=== PATIENT | female | born 1960 | race Caucasian/White ===

== ENCOUNTER 2016-11-13 10:33 | Emergency (ER) | payer BC ==
[2016-11-13 11:14] VITALS: BP 145/75
--- NOTE | 2016-11-13 11:23 | UC ---
Complaint Female HPI - HPI Summary HPI Summary: Bladder fullness, urinary frequency, and dysuria starting 2 days ago. denies fever, vomiting, or back pain. - History Of Current Complaint Chief Complaint: UCGU Stated Complaint: URINARY COMPLAINT Time Seen by Provider: 11/13/16 10:59 Hx Obtained From: Patient ?: No Onset/Duration: Gradual Onset, Lasting Days Timing: Constant Severity Initially: Mild Severity Currently: Moderate Character: Dull, Burning, Cramping Aggravating Factor(s): Urination Alleviating Factor(s): Nothing Associated Signs And Symptoms: Negative: Vaginal Bleeding/Discharge, Vaginal Discharge - Allergies/Home Medications Allergies/Adverse Reactions: Allergies Allergy/AdvReac Type Severity Reaction Status Date / Time No Known Allergies Allergy Verified 11/13/16 11:00 Home Medications: Home Medications Bisoprolol & Hydrochlorothiazi [Ziac 2.5-6.25 mg-] 1 tab PO DAILY 11/13/16 [ History Confirmed 11/13/16] Levothyroxine TAB* [Synthroid TAB*] 100 mcg PO DAILY 11/13/16 [History Confirmed 11/13/16] PMH/Surg Hx/FS Hx/Imm Hx Endocrine History Of: Reports: Thyroid Disease Denies: Diabetes Cardiovascular History Of: Reports: Hypertension Denies: Cardiac Disorders Respiratory History Of: Reports: COPD, Pneumonia Denies: Asthma - Surgical History Surgical History: Yes Surgery Procedure, Year, and Place: appy - Family History Known Family History: Positive: Hypertension - Social History Lives: With Family Alcohol Use: Rare Substance Use Type: None Smoking Status (MU): Current Every Day Smoker Type: Cigarettes Amount Used/How Often: 1/2 pk daily Length of Time of Smoking/Using Tobacco: 30 YRS When Did the Patient Quit Smoking/Using Tobacco: 1 1/2 years - Immunization History Most Recent Influenza Vaccination: [id number] Review of Systems Constitutional: Negative Skin: Negative Eyes: Negative ENT: Negative Respiratory: Negative Cardiovascular: Negative Gastrointestinal: Negative Genitourinary: Dysuria, Frequency, Urgency Motor: Negative Neurovascular: Negative Musculoskeletal: Negative Neurological: Negative Psychological: Negative All Other Systems Reviewed And Are Negative: Yes Physical Exam Triage Information Reviewed: Yes Appearance: Well-Appearing, No Pain Distress, Well-Nourished Vital Signs: Initial Vital Signs Temp 97.1 F 11/13/16 10:51 Pulse 71 11/13/16 10:51 Resp 16 01/06/17 10:51 BP 145/75 11/13/16 10:51 Pulse Ox 99 11/13/16 10:51 Vital Signs Reviewed: Yes Eye Exam: Normal Eyes: Positive: Conjunctiva Clear ENT Exam: Normal ENT: Positive: Normal ENT inspection, Hearing grossly normal, Pharynx normal, TMs normal Dental Exam: Other - dentures Neck exam: Normal Neck: Positive: Supple, Nontender, No Lymphadenopathy Respiratory Exam: Normal Respiratory: Positive: Chest non-tender, Lungs clear, Normal breath sounds, No respiratory distress, No accessory muscle use Cardiovascular Exam: Normal Cardiovascular: Positive: RRR, No Murmur Abdomen Description: Positive: Nontender, Soft. Negative: CVA Tenderness (R), CVA Tenderness (L) Musculoskeletal Exam: Normal Neurological Exam: Normal Psychological Exam: Normal Skin Exam: Normal Complaint Female Dx - Differential Dx/Diagnosis Provider Diagnoses: UTI Discharge - Discharge Plan Condition: Stable Disposition: HOME Prescriptions: Nitrofurantoin Monohyd Macro [Macrobid] 100 mg PO BID #10 cap Phenazopyridine HCl [Pyridium] 200 mg PO TID PRN #3 tab PRN Reason: Pain Patient Education Materials: Urinary Tract Infection in Women (ED) Referrals: Angelina Solo MD [Primary Care Provider] - If Needed
== END 2016-11-13 11:22 | disposition home or self-care (01) ==
LOC: UCCORT 10:33
DX: N39.0 Urinary tract infection, site not specified (principal); E07.9 Disorder of thyroid, unspecified; F17.210 Nicotine dependence, cigarettes, uncomplicated
CPT/HCPCS: 87077; 87086; 87186; 99212; G0463

== ENCOUNTER 2016-12-25 09:13 | Emergency (ER) | payer BC ==
[2016-12-25 10:55] VITALS: BP 115/70
--- NOTE | 2016-12-25 11:14 | UC ---
Respiratory Complaint HPI - HPI Summary HPI Summary: cough, fever was 5 days ago for 2 days, fever now gone. cough no better. productive of yellow sputum. Has had the flu shot and pneumonia shots. Achey. - History of Current Complaint Chief Complaint: UCRespiratory Stated Complaint: UPPER RESPIRATORY Time Seen by Provider: 12/25/16 11:09 Hx Obtained From: Patient Hx Last Menstrual Period: age 50 andreina Onset/Duration: Gradual Onset, Lasting Days, Still Present Timing: Constant Severity Initially: Moderate Severity Currently: Moderate Pain Intensity: 4 Pain Scale Used: 0-10 Numeric Character: Sputum Description: - yellow Aggravating Factors: Nothing Alleviating Factors: Nothing Associated Signs And Symptoms: Positive: Fever - resolved, Wheezing - occasionally, URI, Nasal Congestion - Risk Factors Pulmonary Embolism Risk Factors: Negative Cardiac Risk Factors: Negative Pseudomonas Risk Factors: Negative Tuberculosis Risk Factors: Negative - Allergies/Home Medications Allergies/Adverse Reactions: Allergies Allergy/AdvReac Type Severity Reaction Status Date / Time No Known Allergies Allergy Verified 12/25/16 10:55 Home Medications: Home Medications Folic Acid TAB* [Folvite TAB*] 1 mg PO DAILY 12/25/16 [History Confirmed ] PMH/Surg Hx/FS Hx/Imm Hx Endocrine History Of: Reports: Thyroid Disease Denies: Diabetes Cardiovascular History Of: Reports: Hypertension Denies: Cardiac Disorders Respiratory History Of: Reports: COPD, Pneumonia Denies: Asthma - Surgical History Surgical History: Yes Surgery Procedure, Year, and Place: appy - Family History Known Family History: Positive: Other - ARREDONDO in mother, colon cancer in father, both - Social History Occupation: Employed Full-time Alcohol Use: Rare Substance Use Type: None Smoking Status (MU): Former Smoker Type: Cigarettes Amount Used/How Often: 1/2 pk daily Length of Time of Smoking/Using Tobacco: 30 YRS When Did the Patient Quit Smoking/Using Tobacco: 1 1/2 years - Immunization History Most Recent Influenza Vaccination: [id number] Review of Systems Constitutional: Fever Skin: Negative Eyes: Negative ENT: Negative Respiratory: Cough Cardiovascular: Negative Gastrointestinal: Negative Genitourinary: Negative Motor: Negative Neurovascular: Negative Musculoskeletal: Negative Neurological: Negative Psychological: Negative All Other Systems Reviewed And Are Negative: Yes Physical Exam Triage Information Reviewed: Yes Appearance: Well-Nourished, Ill-Appearing, Pain Distress Vital Signs: Initial Vital Signs Temp 98 F 12/25/16 10:48 Pulse 72 12/25/16 10:48 Resp 18 12/25/16 10:48 BP 115/70 12/25/16 10:48 Pulse Ox 97 12/25/16 10:48 Vital Signs Reviewed: Yes Eyes: Positive: Conjunctiva Clear ENT: Positive: Hearing grossly normal, Pharyngeal erythema, TMs normal Neck: Positive: Supple, Nontender, No Lymphadenopathy Respiratory: Positive: No respiratory distress, No accessory muscle use, Wheezing - throughout exp Cardiovascular: Positive: RRR, No Murmur, Pulses Normal, Brisk Capillary Refill Musculoskeletal: Positive: Strength Intact, ROM Intact Neurological: Positive: Alert, Muscle Tone Normal Psychological Exam: Normal Skin Exam: Normal UC Diagnostic Evaluation - Laboratory O2 Sat by Pulse Oximetry: 97 Respiratory Course/Dx - Differential Dx/Diagnosis Differential Diagnosis/HQI/PQRI: Bronchitis, Lower Resp Infection, Sinusitis Provider Diagnoses: asthmatic bronchitis Discharge - Discharge Plan Condition: Stable Disposition: HOME Prescriptions: Albuterol HFA INHALER* [Ventolin HFA Inhaler*] 2 puff INH Q6H PRN #1 mdi PRN Reason: Cough DOXYcycline CAP(*) [DOXYcycline 100MG CAP(*)] 100 mg PO BID #20 cap guaiFENesin/CODIEN 100MG-10MG* [Robitussin AC 100Mg-10Mg*] 5 ml PO Q4H PRN #50 ml MDD 5ml PRN Reason: Cough predniSONE TAB* [Deltasone TAB*] 40 mg PO DAILY #10 tab Patient Education Materials: Acute Bronchitis (ED), Bronchospasm (ED) Referrals: Angelina Solo MD [Primary Care Provider] -
== END 2016-12-25 11:34 | disposition home or self-care (01) ==
LOC: UCCORT 09:13
DX: J44.9 Chronic obstructive pulmonary disease, unspecified (principal); J20.9 Acute bronchitis, unspecified; J45.998 Other asthma; R50.9 Fever, unspecified; I10 Essential (primary) hypertension; E07.9 Disorder of thyroid, unspecified; Z87.01 Personal history of pneumonia (recurrent); Z87.891 Personal history of nicotine dependence
CPT/HCPCS: 99212; G0463

== ENCOUNTER 2017-08-21 11:03 | Emergency (ER) | payer BC ==
[2017-08-21 11:51] VITALS: BP 143/63
--- NOTE | 2017-08-21 12:33 | UC ---
Respiratory Complaint HPI - HPI Summary HPI Summary: Increase cough and sinus pressure over the past week, concentrated over the left eye. - History of Current Complaint Chief Complaint: UCRespiratory Stated Complaint: RESPITORY Time Seen by Provider: 08/21/17 12:23 Hx Obtained From: Patient Hx Last Menstrual Period: age 50 andreina ?: No Onset/Duration: Sudden Onset, Lasting Days Timing: Constant Severity Initially: Mild Severity Currently: Moderate Associated Signs And Symptoms: Positive: URI, Nasal Congestion, Sinus Discomfort - Allergies/Home Medications Allergies/Adverse Reactions: Allergies Allergy/AdvReac Type Severity Reaction Status Date / Time No Known Allergies Allergy Verified 08/21/17 11:46 PMH/Surg Hx/FS Hx/Imm Hx Previously Healthy: Yes - Surgical History Surgical History: Yes Surgery Procedure, Year, and Place: appy - Family History Known Family History: Positive: Hypertension, Other - ARREDONDO in mother, colon cancer in father, both - Social History Occupation: Employed Full-time Alcohol Use: Rare Substance Use Type: None Smoking Status (MU): Former Smoker Type: Cigarettes Amount Used/How Often: 1/2 pk daily Length of Time of Smoking/Using Tobacco: 30 YRS When Did the Patient Quit Smoking/Using Tobacco: 1 1/2 years - Immunization History Most Recent Influenza Vaccination: not yet 2017 Review of Systems Constitutional: Negative Skin: Negative Eyes: Negative ENT: Ear Ache, Nasal Discharge, Sinus Congestion, Sinus Pain/Tenderness Respiratory: Shortness Of Breath, Cough Cardiovascular: Negative Gastrointestinal: Negative Genitourinary: Negative Motor: Negative Neurovascular: Negative Musculoskeletal: Negative Neurological: Headache Psychological: Negative Is Patient Immunocompromised?: No All Other Systems Reviewed And Are Negative: Yes Physical Exam Triage Information Reviewed: Yes Appearance: Well-Appearing, Well-Nourished, Pain Distress Vital Signs: Initial Vital Signs Temp 97.7 F 08/21/17 11:48 Pulse 78 08/21/17 11:48 Resp 18 08/21/17 11:48 BP 143/63 08/21/17 11:48 Pulse Ox 97 08/21/17 11:48 Vital Signs Reviewed: Yes Eye Exam: Normal ENT: Positive: Pharyngeal erythema - with posterior exudate, Nasal drainage, TM bulging Dental Exam: Normal Neck exam: Normal Neck: Positive: Supple, Nontender, No Lymphadenopathy Respiratory Exam: Normal Respiratory: Positive: Chest non-tender, Lungs clear, Normal breath sounds Cardiovascular Exam: Normal Cardiovascular: Positive: RRR, No Murmur, Pulses Normal Abdominal Exam: Normal Abdomen Description: Positive: Nontender, No Organomegaly, Soft Bowel Sounds: Positive: Present Musculoskeletal Exam: Normal Neurological Exam: Normal Neurological: Positive: Alert, Muscle Tone Normal Psychological Exam: Normal Skin Exam: Normal UC Diagnostic Evaluation - Laboratory O2 Sat by Pulse Oximetry: 97 Respiratory Course/Dx - Course Course Of Treatment: hx obtained, exam performed, meds reviewed, treated for sinusitis - Differential Dx/Diagnosis Differential Diagnosis/HQI/PQRI: Bronchitis, Laryngitis, Lower Resp Infection, Sinusitis Provider Diagnoses: sinusitis Discharge - Discharge Plan Condition: Stable Disposition: HOME Prescriptions: DOXYcycline CAP(*) [DOXYcycline 100MG CAP(*)] 100 mg PO BID #14 cap predniSONE TAB* [Deltasone TAB*] 40 mg PO DAILY #10 tab Patient Education Materials: Sinusitis (ED) Referrals: Angelina Solo MD [Primary Care Provider] - Additional Instructions: 1. take the medication as prescribed. 2. Increase fluid intake and get plenty of rest. 3. Follow up with any increase in symtpoms
== END 2017-08-21 12:40 | disposition home or self-care (01) ==
LOC: UCCORT 11:03
DX: J32.9 Chronic sinusitis, unspecified (principal); Z87.891 Personal history of nicotine dependence
CPT/HCPCS: 99212; G0463

== ENCOUNTER 2017-10-18 15:27 | Emergency (ER) | payer BC ==
[2017-10-18 15:44] VITALS: BP 141/70
[2017-10-18] MEDS ORDERED: Acetaminophen TAB* 325 MG PO ONE (16:08)
--- NOTE | 2017-10-18 16:21 | UC ---
Respiratory Complaint HPI - HPI Summary HPI Summary: Pt presents to with left sided rib pain. Pt states a few nights ago was lifting her 34 pound 1yo grandchild into car seat in middle of back row. Pt rubbed and ribs/side along the seat in front causing bruising and abrasion. Pt with persistent discomfort since. Pt states has been taking NSAID with mild relief. Pt has used heat with improvement. No blood in urine. No SOB - pain with deep breath. no cough. No abd pain No N/V/D. Last Naproxyn at 9am. Tdap 7 years. No anticoagulation Pt denies direct trauma, maltreatment Pt's medications reviewed this visit - History of Current Complaint Chief Complaint: UCChestPain Stated Complaint: LEFT SIDE RIB PAIN Time Seen by Provider: 10/18/17 15:53 Hx Obtained From: Patient Hx Last Menstrual Period: age 50 andreina Onset/Duration: Gradual Onset Timing: Constant Severity Initially: Moderate Severity Currently: Moderate Pain Intensity: 5 Character: Cough: Nonproductive Associated Signs And Symptoms: Positive: Negative. Negative: Fever - Allergies/Home Medications Allergies/Adverse Reactions: Allergies Allergy/AdvReac Type Severity Reaction Status Date / Time No Known Allergies Allergy Verified 10/18/17 15:40 PMH/Surg Hx/FS Hx/Imm Hx Previously Healthy: Yes - Surgical History Surgical History: Yes Surgery Procedure, Year, and Place: Tubal Ligation, Appendectomy - Family History Known Family History: Positive: Hypertension, Other - ARREDONDO in mother, colon cancer in father, both - Social History Occupation: Employed Part-time, Retired Lives: With Family Alcohol Use: Rare Substance Use Type: None Smoking Status (MU): Former Smoker Type: Cigarettes Amount Used/How Often: 1/2 pk daily Length of Time of Smoking/Using Tobacco: 1/2 PPD for 25-30 Years When Did the Patient Quit Smoking/Using Tobacco: 2011 - Immunization History Most Recent Influenza Vaccination: Not the 2016/2017 Season Review of Systems Constitutional: Negative Skin: Bruising, Other Is Patient Immunocompromised?: No All Other Systems Reviewed And Are Negative: Yes Physical Exam Triage Information Reviewed: Yes Appearance: Well-Appearing, Well-Nourished, Pain Distress Vital Signs: Initial Vital Signs Temp 98.5 F 10/18/17 15:37 Pulse 80 10/18/17 15:37 Resp 16 10/18/17 15:37 BP 141/70 10/18/17 15:37 Pulse Ox 100 10/18/17 15:37 Vital Signs Reviewed: Yes Eyes: Positive: Conjunctiva Clear ENT: Positive: Hearing grossly normal Neck exam: Normal Neck: Positive: Supple, Nontender, No Lymphadenopathy Respiratory Exam: Normal Respiratory: Positive: Chest non-tender, Lungs clear, Normal breath sounds, No respiratory distress, No accessory muscle use, Other: - + ecchymosis, abrasion left distal ribs. No crepitus + TTP + BS throughout no w/r Cardiovascular Exam: Normal Cardiovascular: Positive: RRR, No Murmur Abdominal Exam: Normal Abdomen Description: Positive: Nontender, No Organomegaly, Soft, Other: - abd soft + BS no guarding, no rebound Bowel Sounds: Positive: Present Musculoskeletal Exam: Normal Musculoskeletal: Positive: Strength Intact Neurological Exam: Normal Neurological: Positive: Alert Psychological Exam: Normal Skin: Positive: Other - + ecchymosis, abraison - no suturable left ribs UC Diagnostic Evaluation - Laboratory O2 Sat by Pulse Oximetry: 100 - Radiology Radiology Interpretation Completed By: ED Physician - rib fx, minimall displaced Respiratory Course/Dx - Course Course Of Treatment: Pt with left rib abraison, contusion following twisting in tight space3 days ago. abd soft. no crepitus. +BS. will check cxr. apap. pt taking NSAId. likely malvin wrap, motrin/apap. heat. stretch - Differential Dx/Diagnosis Provider Diagnoses: rib contusion. rib fracture. skin abraison Discharge - Discharge Plan Condition: Stable Disposition: HOME Prescriptions: Acetaminop/Codeine 30 MG TAB* [Tylenol/Codeine 30 MG TAB*] 1 - 2 tab PO Q6H PRN #15 tab MDD 8 PRN Reason: Severe Pain Patient Education Materials: Rib Fracture (ED), Abrasion (ED) Referrals: Angelina Solo MD [Primary Care Provider] - Additional Instructions: - Stay well hydrated. Drink plenty of non-alcoholic, non-caffinated beverages - Okay to take Naproxyn 2 times daily. -Okay to take tylenol product (tylenol or tylenol with codeine) as well - every 6-[address]. [address],oper[address] machinery or drink alcohol while taking codeine - Deep, slow breaths are important - Wear lumbar support belt over ribs for comfort and support. Okay to hold pillow against your ribs for support. - Apply moist heat to your chest wall 2-3 times a day - Do not apply directly to your chest to prevent alvarado to your skin - Okay to take flexeril at nighttime to help with rest - do not drive, operate machinery or drink while taking this medication do not take with codeine - contact your doctor to schedule a follow-up appointment. Contact your doctor or return with questions or concerns
--- NOTE | 2017-10-18 17:23 | RAD ---
HISTORY: Left rib contusion, pain COMPARISONS: None VIEWS: 6, Frontal view of the chest with frontal and oblique views of the left hemithorax FINDINGS: There is a minimally displaced fracture of the left eighth rib. There is no pneumothorax. IMPRESSION: MINIMALLY DISPLACED LEFT EIGHTH RIB FRACTURE, NO PNEUMOTHORAX.
== END 2017-10-18 17:22 | disposition home or self-care (01) ==
LOC: UCCORT 15:27
DX: S20.212A Contusion of left front wall of thorax, initial encounter (principal); S22.32XA Fracture of one rib, left side, initial encounter for closed fracture; T14.8XXA Other injury of unspecified body region, initial encounter; Y92.9 Unspecified place or not applicable; Z87.891 Personal history of nicotine dependence; W22.8XXA Striking against or struck by other objects, initial encounter; Y93.89 Activity, other specified
CPT/HCPCS: 99212; A9270-GY; G0463